=== PATIENT | female | born 1970 ===

== ENCOUNTER 2017-02-13 06:24 | Day surgery (SDC) | payer MEDICAID ==
[2017-02-13] VITALS (7 sets, daily range): BP systolic 110–137; BP diastolic 70–87
[~2017-02-13] VITALS: Ht 152.4 cm; Wt 72.6 kg
--- NOTE | 2017-02-13 06:04 | Anethesia Preoperative Eval ---
Anesthesia Pre-op PMH/ROS General Date of Evaluation: Feb 13, 2017 Time of Evaluation: 06:03 Anesthesiologist: pippa ASA Score: ASA 3 Mallampati Score Class I : Soft palate, uvula, fauces, pillars visible Class II: Soft palate, uvula, fauces visible Class III: Soft palate, base of uvula visible Class IV: Only hard plate visible Mallampati Classification: Class II Surgeon: genia Diagnosis: gerd, anemia Surgical Procedure: egd Allergies: Coded Allergies: No Known Allergies (Unverified , 02/13/17) Past Medical History Hematology/Immune: Reports: anemia, other - cancer Anesthesia Pre-op Phys. Exam Physician Exam Labs Test 02/13/17 06:40 Urine HCG, Qualitative Negative Constitutional: NAD Neurologic: CN 2-12 intact Cardiovascular: RRR Respiratory: CTA Gastrointestinal: S/NT/ND Airway Exam Mallampati Score: Class II MO: full Neck: supple TMD: 2fb ROM: full Teeth: intact Anesthesia Pre-op A/P Risk Assessment & Plan Assessment: asa3 Plan: mac Status Change Before Surgery: No Pre-Antibiotics Drug: GUERO Carter Feb 13, 2017 06:04
[2017-02-13] MEDS ORDERED: LEVOTHYROXINE137 MCG ORAL (07:45)
[2017-02-13] MEDS ORDERED: PROVERA10 MG ORAL (07:45)
[2017-02-13] MEDS ORDERED: TAMOXIFEN CITRA10 M1 ORAL (07:45)
[2017-02-13] MEDS ORDERED: ASPIR 8181 MG ORAL (07:45)
[2017-02-13] MEDS ORDERED: FERROUS FUMARA324 M1 PO (07:45)
[2017-02-13] MEDS ORDERED: Lidocaine 1% MPF 10mg/ml 5ml ONE (08:00)
[2017-02-13] MEDS ORDERED: Propofol 10mg/ml 20ml IV ONE (08:00)
--- NOTE | 2017-02-13 08:20 | Pre-Procedure Note/Attestation ---
Pre-Procedure Note/Attestation Complete Prior to Procedure Planned Procedure: not applicable Procedure Narrative: egd Indications for Procedure Pre-Operative Diagnosis: GERD, anemia Attestation I attest that I discussed the nature of the procedure; its benefits; risks and complications; and alternatives (and the risks and benefits of such alternatives ), prior to the procedure, with the patient (or the patient's legal strategic partnership representative). I attest that, if there was a reasonable possibility of needing a blood transfusion, the patient (or the patient's legal strategic partnership representative) was given the [facility] standardized written summary, pursuant to the Wali Wildrose Blood Safety Act ([place] Health and Safety Code # 1645, as amended). I attest that I re-evaluated the patient just prior to the surgery and that there has been no change in the patient's H&P, except as documented below: CB CONSTANTINO Feb 13, 2017 08:20
--- NOTE | 2017-02-13 08:21 | Short Stay Surgery H&P ---
History of Present Illness History of Present Illness Chief Complaint gerd, anemia HPI Milli Reaves is a 46 year old female who was admitted on for Gerd,Anemia Patient History Allergies: Coded Allergies: No Known Allergies (Unverified , 02/13/17) PAST MEDICAL HISTORY: (1) GERD (gastroesophageal reflux disease) (2) Breast CA Past Surgeries: Social History: Medication History Scheduled Aspirin* (Aspir 81*), 81 MG ORAL DAILY, (Reported) Ferrous Fumarate (Ferrous Fumarate), 324 MG PO DAILY, (Reported) Levothyroxine Sodium (Levothyroxine Sodium), 25 MCG ORAL DAILY, (Reported) Medroxyprogesterone Acet* (Provera*), 10 MG ORAL DAILY, (Reported) Tamoxifen Citrate (Tamoxifen Citrate), 20 MG ORAL DAILY, (Reported) Review of Systems Cardiovascular: Reports: no symptoms Respiratory: Reports: no symptoms Skeletal: Reports: no symptoms Gastrointestinal: Reports: gastro esophageal reflux disease Genitourinary: Reports: no symptoms Neurologic: Reports: no symptoms Endocrine: Reports: no symptoms Hematologic: Reports: no symptoms Physical Exam Vital Signs Last Vital Signs Date Time Temp Pulse Resp B/P Pulse Ox O2 Delivery O2 Flow Rate FiO2 02/13/17 07:36 98.1 67 20 131/87 100 Room Air Labs Laboratory Tests Test 02/13/17 06:40 Urine HCG, Qualitative Negative Skin: normal HENT: normal Heart: normal Lungs: normal Abdomen: normal Extremities: normal Plan Plan of Care egd Final Diagnosis: Attestation Are the patient's medical conditions optimized for surgery? Attestation Response: yes CB CONSTANTINO Feb 13, 2017 08:21
--- NOTE | 2017-02-13 08:32 | Endoscopy Procedure Note ---
Endoscopy Procedure Note Indication for Procedure: gerd Procedures Performed: EGD Operative Findings/Diagnosis: gastritis Specimen: yes Pt Tolerated Procedure Well: Yes Estimated Blood Loss: none Anesthesiologist: colby woody Anesthesia: MAC Implant(s) used?: No 50 yrs or older w/o bx or poly: Not Applicable 10yrs. F/U not recommended: Not Applicable CB CONSTANTINO Feb 13, 2017 08:32
--- NOTE | 2017-02-13 08:47 | Immediate Post-Op Evaluation ---
Immediate Post-Op Evalulation Immediate Post-Op Evalulation Procedure: egd Date of Evaluation: Feb 13, 2017 Time of Evaluation: 08:47 IV Fluids: 150ml 0.9ns Blood Products: none Estimated Blood Loss: negligible Blood Pressure Systolic: 117 Blood Pressure Diastolic: 67 Pulse Rate: 66 Respiratory Rate: 18 O2 Sat by Pulse Oximetry: 100 Temperature (Fahrenheit): 97.5 Pain Score (1-10): 0 Nausea: No Vomiting: No Complications none Patient Status: awake, reacts, patent Hydration Status: adequate Drug: GUERO Carter Feb 13, 2017 08:47
--- NOTE | 2017-02-13 08:49 | 48 Hour Post Anesthesia Eval ---
Post Anesthesia Evaluation Procedure: egd Date of Evaluation: Feb 13, 2017 Time of Evaluation: 08:49 Blood Pressure Systolic: 118 0: 73 Pulse Rate: 64 Respiratory Rate: 18 Temperature (Fahrenheit): 97.5 O2 Sat by Pulse Oximetry: 100 Airway: patent Nausea: No Vomiting: No Pain Intensity: 0 Hydration Status: adequate Cardiopulmonary Status: stable Mental Status/LOC: patient returned to baseline Post-Anesthesia Complications: none Follow-up care needed: N/A GUERO SINGH Feb 13, 2017 08:49
[2017-02-13] MEDS ORDERED: DiphenhydrAMINE 50mg/ml Inj IVP PRN (09:00)
[2017-02-13] MEDS ORDERED: Atropine Inj 1mg/10ml Syr IV PRN (09:00)
[2017-02-13] MEDS ORDERED: Midazolam 2mg/2ml Inj IVP PRN (09:00)
[2017-02-13] MEDS ORDERED: Hydromorphone 0.5mg/0.5ml inj IVP PRN (09:00)
--- NOTE | 2017-02-13 09:15 | Procedure Note ---
DATE OF PROCEDURE: 02/13/2017 PROCEDURE: Upper endoscopy with biopsy. ANESTHESIOLOGIST: Sole Slater M.D. INSTRUMENT: Olympus adult flexible upper endoscope. INDICATION: GERD and anemia. REASON FOR PROCEDURE: The procedure, risks, benefits, and possible consequences, including hemorrhage, aspiration, perforation and infection, and alternative treatments, were explained to the patient/legal guardian by Dr. Juan Naik and the patient/legal guardian understood and accepted these risks. DESCRIPTION OF PROCEDURE: After informed consent was obtained and the patient was adequately sedated, Olympus upper endoscope was advanced from the mouth into the second portion of duodenum and retroflexion was performed in the stomach. The patient had diffuse gastritis. Random biopsy from antrum was obtained to rule out H. pylori infection. There was no obvious active bleeding. No ulcerations. There was a questionable distal esophageal ring without any obvious esophagitis. The patient tolerated the procedure without any complication. SUMMARY OF FINDINGS: 1. Gastritis, status post biopsy to rule out Helicobacter pylori infection. 2. Distal esophageal ring. RECOMMENDATIONS: 1. Follow up biopsy result and treat accordingly. 2. The patient will follow in the office for further evaluation of possible colonoscopy or further workup of abdominal pain. I want to thank, Dr. Caroline Bourgeois, for this kind referral. Juan Naik M.D. DR: CONOR JOB#: [id number] CC: Caroline Bourgeois M.D.; Fax#: [phone]
== END 2017-02-13 10:00 | disposition home or self-care (01) ==
LOC: GAS 06:24
DX: D64.9 Anemia, unspecified (principal); K21.9 Gastro-esophageal reflux disease without esophagitis; K29.50 Unspecified chronic gastritis without bleeding; B96.81 Helicobacter pylori [H. pylori] as the cause of diseases classified elsewhere; K22.2 Esophageal obstruction; Z85.3 Personal history of malignant neoplasm of breast; Z79.82 Long term (current) use of aspirin
CPT/HCPCS: 43239; 81025; J2704; Z7512; 94003; 94150